=== PATIENT | female | born 1985 | race Caucasian/White ===

== ENCOUNTER 2017-11-09 12:43 | Emergency (ER) | payer OTHER ==
[2017-11-09] MEDS ORDERED: diPHENhydraMINE IV* 50 MG/ML 1 ml VIAL (BENADRYL) IV ONE (12:59)
[2017-11-09] MEDS ORDERED: Famotidine IV* 10 MG/ML 2 ML (20 mg) IV SLOW PU ONE (12:59)
[2017-11-09] MEDS ORDERED: methylPREDNISolone 125 MG* 2 ML VIAL IV ONE (12:59)
[2017-11-09 15:27] VITALS: BP 144/95
--- NOTE | 2017-11-09 18:02 | ED ---
Taco Haynes Tenzin, scribed for Abisai Zamora MD on 11/09/17 at 1328 . Allergic Reaction/Systemic - HPI Summary HPI Summary: Pt is a 32 years old female presenting to the ED with complaints of urticaria beginning this week which worsened when she woke up this morning. She has a history of allergy induced asthma. Pt notes her ear urticaria is swollen and in fiery pain. She also notes tightness around her chest and throat. She has hives diffusively around her back and front chest. She admits that she took allergy medication from a drug store but it didnt help to alleviate her symptoms. - History of Current Complaint Chief Complaint: EDAllergicReaction Time Seen by Provider: 11/09/17 12:51 Hx Obtained From: Patient Hx Last Menstrual Period: mirena Onset/Duration: Still Present Timing: Lasting Days Severity Initially: Moderate Severity Currently: Moderate Pain Scale Used: 0-10 Numeric Location: Diffuse - back and chest area Aggravating Factor(s): Nothing Alleviating Factor(s): Nothing Associated Signs And Symptoms: Positive: Throat Tightening, Other: - Urticaria and chest tightening. - Allergies/Home Medications Allergies/Adverse Reactions: Allergies Allergy/AdvReac Type Severity Reaction Status Date / Time kiwi Allergy Swelling Verified 11/09/17 12:55 Penicillins Allergy Rash Verified 11/09/17 12:55 PMH/Surg Hx/FS Hx/Imm Hx Endocrine/Hematology History: Reports: Hx Diabetes Denies: Hx Thyroid Disease Cardiovascular History: Denies: Hx Hypertension Respiratory History: Reports: Hx Asthma Denies: Hx Chronic Obstructive Pulmonary Disease (COPD) GI History: Denies: Hx Ulcer - Surgical History Surgery Procedure, Year, and Place: [place] [facility]. Oral Surgery Infectious Disease History: Denies: Hx Hepatitis, Hx Human Immunodeficiency Virus (HIV) - Family History Known Family History: Positive: Other Family History: Pt denies any relevant family history. - Social History Alcohol Use: Rare Substance Use Type: Reports: None Smoking Status (MU): Light Every Day Tobacco Smoker Amount Used/How Often: 1/2 PPD Review of Systems Positive: Other - Tightness around her chest and throat. Positive: Other - Urticaria All Other Systems Reviewed And Are Negative: Yes Physical Exam - Summary Physical Exam Summary: Appearance: The patient is well-nourished in no acute distress and in no acute pain. Skin: The skin is warm and dry and skin color reflects adequate perfusion. She has urticaria present diffusely on her back and on her front chest. HEENT: The head is normocephalic and atraumatic. The pupils are equal and reactive. The conjunctivae are clear and without drainage. Nares are patent and without drainage. Mouth reveals moist mucous membranes and the throat is without erythema and exudate. The external ears are intact. The ear canals are patent and without drainage. The tympanic membranes are intact. Neck: the neck is supple with full range of motion and non-tender. There are no carotid bruits. There is no neck vein distension. Respiratory: Chest is non-tender. Lungs are clear to auscultation and breath sounds are symmetrical and equal. Cardiovascular: Heart is regular rate and rhythm. There is no murmur or rub auscultated. There is no peripheral edema and pulses are symmetrical and equal. Abdomen: The abdomen is soft and non-tender. There are normal bowel sounds heard in all four quadrants and there is no organomegaly palpated. Musculoskeletal: There is no back tenderness noted. Extremities are non-tender with full range of motion. There is good capillary refill. There is no peripheral edema or calf tenderness elicited. Neurological: Patient is alert and oriented to person, place and time. The patient has symmetrical motor strength in all four extremities. Cranial nerves are grossly intact. Deep tendon reflexes are symmetrical and equal in all four extremities. Psychiatric: The patient has an appropriate affect and does not exhibit any anxiety or depression. Triage Information Reviewed: Yes Vital Signs On Initial Exam: Initial Vitals Pulse Resp Pulse Ox 124 24 97 11/09/17 12:54 11/09/17 12:54 11/09/17 12:54 Vital Signs Reviewed: Yes Diagnostics - Vital Signs Vital Signs Temp Pulse Resp BP Pulse Ox 11/09/17 15:26 0 F 91 20 144/95 95 11/09/17 15:01 102 25 94 11/09/17 14:59 99 23 137/94 94 11/09/17 14:29 94 21 133/92 95 11/09/17 14:01 101 25 95 11/09/17 13:59 99 22 165/100 96 11/09/17 13:29 99 20 164/108 97 11/09/17 13:00 109 19 97 11/09/17 12:59 25 167/99 11/09/17 12:55 98.9 F 109 24 167/99 96 11/09/17 12:54 124 24 97 - Laboratory Lab Statement: Any lab studies that have been ordered have been reviewed, and results considered in the medical decision making process. Allergic Reaction Course/Dx - Course Course Of Treatment: Ms. Clayton felt a lot better after medications here. It is unclear what is the source of her allergic reaction. I recommended she F/U closely and she was given the contact info for [facility] - Diagnoses Provider Diagnoses: Allergic reaction Discharge - Sign-Out/Discharge Documenting (check all that apply): Discharge/Admit/Transfer - Discharge Plan Condition: Stable Disposition: HOME Patient Education Materials: Urticaria (ED) Referrals: No Primary Care Phys,NOPCP [Primary Care Provider] - Additional Instructions: The patient is referred to [facility]. Phone number: [phone]. She can follow up with them in 3 days. Return to the emergency department for any new or worsening symptoms. - Billing Disposition and Condition Condition: STABLE Disposition: HOME The documentation as recorded by the Taco garrido Tenzin accurately reflects the service I personally performed and the decisions made by me, Abisai Zamora MD.
== END 2017-11-09 15:26 | disposition home or self-care (01) ==
LOC: ED 12:43
DX: T78.40XA Allergy, unspecified, initial encounter (principal); F17.200 Nicotine dependence, unspecified, uncomplicated; Z88.0 Allergy status to penicillin
CPT/HCPCS: 96374; 96375; 99282; J1200; J2930

== ENCOUNTER 2017-11-10 12:57 | Emergency (ER) | payer OTHER ==
[2017-11-10] MEDS ORDERED: Famotidine IV * 20 MG in NS 0.9% 100 ML* 100 ML IVPB ONE (13:13)
[2017-11-10] MEDS ORDERED: diPHENhydraMINE IV* 50 MG/ML 1 ml VIAL (BENADRYL) IV ONE (13:13)
[2017-11-10] MEDS ORDERED: methylPREDNISolone 125 MG* 2 ML VIAL IV ONE (13:15)
--- NOTE | 2017-11-10 13:23 | ED ---
Allergic Reaction/Systemic - HPI Summary HPI Summary: Patient is a 32-year-old female who presents to the ED with chief complaint of hives and midsternal chest pain which radiates over into the left side. She was seen here in the ED yesterday with a chief complaint of allergic reaction of hives. Hives have been present 6 days, but this is the first day she endorses chest pain. She has never had chest pain before. History of diabetes and hypertension, both of which are uncontrolled. She states she does not like the way the medication makes her feel, therefore does not take them. Since yesterday, she has been taking Benadryl which has not improved her symptoms. She was also given a steroid injection while in the ED, of which she does not feel it has helped either. She has diffuse hives over her abdomen and bilateral arms, sparing the lower extremities. She denies OCP use, denies recent travel, however she is a smoker. Risk factors of CAD as well as DVT/PE. - History of Current Complaint Chief Complaint: EDAllergicReaction Time Seen by Provider: 11/10/17 12:59 Hx Obtained From: Patient Hx Last Menstrual Period: mirena Onset/Duration: Sudden Onset Timing: Constant Severity Initially: Mild Severity Currently: Mild Pain Intensity: 0 Pain Scale Used: 0-10 Numeric Location: Discrete @ - midsternal chest pain radiating to the left side body Character: Swelling, Pruritus, Hives Aggravating Factor(s): Nothing Alleviating Factor(s): Nothing Associated Signs And Symptoms: Positive: Chest Pain. Negative: Difficulty Breathing, Hoarseness, Lightheadedness, Throat Tightening - Related Hx Possible Reaction To: Unknown - Allergies/Home Medications Allergies/Adverse Reactions: Allergies Allergy/AdvReac Type Severity Reaction Status Date / Time kiwi Allergy Swelling Verified 11/09/17 12:55 Penicillins Allergy Rash Verified 11/09/17 12:55 Home Medications: Home Medications Ibuprofen TAB* [Motrin TAB* 600 MG] 600 mg PO Q8H PRN 11/10/17 [History Confirmed 11/10/17] Levonorgestrel (Iud) [Mirena IUD] 20 mcg IU ONCE 11/10/17 [History Confirmed ] PMH/Surg Hx/FS Hx/Imm Hx Previously Healthy: Yes Endocrine/Hematology History: Reports: Hx Diabetes Denies: Hx Thyroid Disease Cardiovascular History: Denies: Hx Hypertension Respiratory History: Reports: Hx Asthma Denies: Hx Chronic Obstructive Pulmonary Disease (COPD) GI History: Denies: Hx Ulcer - Surgical History Surgery Procedure, Year, and Place: [place] Teeth. Oral Surgery - Immunization History Hx Pertussis Vaccination: No Immunizations Up to Date: Unable to Obtain/Confirm Infectious Disease History: No Infectious Disease History: Denies: Hx Hepatitis, Hx Human Immunodeficiency Virus (HIV), Traveled Outside the [place] in Last 30 Days - Family History Known Family History: Positive: Other Family History: Pt denies any relevant family history. - Social History Occupation: Employed Full-time Lives: Alone Alcohol Use: Rare Hx Substance Use: No Substance Use Type: Reports: None Smoking Status (MU): Light Every Day Tobacco Smoker Amount Used/How Often: 1/2 PPD Review of Systems Constitutional: Negative Negative: Fever, Chills, Fatigue, Skin Diaphoresis Negative: Photophobia, Blurred Vision, Diplopia, Drainage, Erythema Negative: Sore Throat, Nasal Discharge Positive: Chest Pain. Negative: Palpitations Negative: Shortness Of Breath, Cough Positive: no symptoms reported, see HPI Positive: Other - diffuse hives Neurological: Negative Psychological: Normal All Other Systems Reviewed And Are Negative: Yes Physical Exam Triage Information Reviewed: Yes Vital Signs On Initial Exam: Initial Vitals Temp Pulse Resp BP Pulse Ox 98.8 F 114 18 159/90 94 11/10/17 13:11 11/10/17 13:11 11/10/17 13:11 11/10/17 13:11 11/10/17 13:11 Vital Signs Reviewed: Yes Appearance: Positive: Well-Appearing, No Pain Distress, Well-Nourished Skin: Positive: Skin Color Reflects Adequate Perfusion, Other - Diffuse hives Head/Face: Positive: Normal Head/Face Inspection Neck: Positive: No Lymphadenopathy Respiratory/Lung Sounds: Positive: Clear to Auscultation, Breath Sounds Present Cardiovascular: Positive: RRR, Pulses are Symmetrical in both Upper and Lower Extremities Musculoskeletal: Positive: Normal, Strength/ROM Intact Neurological: Positive: Speech Normal Psychiatric: Positive: Affect/Mood Appropriate Diagnostics - Vital Signs Vital Signs Temp Pulse Resp BP Pulse Ox 11/10/17 13:11 98.8 F 114 18 159/90 94 - Laboratory Result Diagrams: 11/10/17 13:34 Lab Statement: Any lab studies that have been ordered have been reviewed, and results considered in the medical decision making process. Allergic Reaction Course/Dx - Course Course Of Treatment: During the course of treatment, the patient is evaluated for diffuse hives secondary to an allergic reaction of an unknown source. She was seen yesterday for same. She was given steroids and encouraged Benadryl, both she states which are not helping. She was not however given at home dose steroids. She endorses midsternal chest pain radiating over into the left side. Denies any shortness of breath, dysphagia. On physical examination, airway is patent. There is diffuse hives throughout the abdomen and bilateral arms, sparing the lower extremities. She states the hives have remained stable , but her chief complaint is concern of chest pain. Risk factors of CAD as well as DVT/PE. She states however the pain is not worse with inspiration, she is not tachycardic on arrival, she does not appear anxious and less likely a PE. However due to her risk factors, d-dimer obtained. D-dimer elevated at 909. CTA obtained to assess for PE as patient is also set tachycardic at 113. CTA is negative for PE. Patient is given a tapering dose of prednisone, hydroxyzine for itching, famotidine and Benadryl. She is also given an albuterol inhaler. 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 Likely chest pain bronchospasm secondary to allergic reaction. Prior to discharge, hives diffusely throughout have resolved , however she continues to complain of itching. - Diagnoses Differential Diagnosis/HQI/PQRI: Positive: Anaphylaxis, Bronchospasm Provider Diagnoses: Allergic reaction Discharge - Sign-Out/Discharge Documenting (check all that apply): Discharge/Admit/Transfer - Discharge Plan Condition: Stable Disposition: HOME Prescriptions: Albuterol HFA INHALER* [Ventolin HFA Inhaler*] 1 puff INH Q4H PRN #1 mdi PRN Reason: Shortness Of Breath diPHENhydraMINE PO* [Benadryl PO 50 MG CAP*] 50 mg PO BID #14 cap Famotidine TAB* [Pepcid 20 MG TAB*] 40 mg PO BID #14 tab hydrOXYzine HCL TAB* [Atarax TAB 50 MG *] 50 mg PO TID PRN #15 tab PRN Reason: Itching predniSONE TAB* [Deltasone TAB*] 10 mg PO DAILY #30 tab Patient Education Materials: Urticaria (ED), Allergies (ED) Referrals: No Primary Care Phys,NOPCP [Primary Care Provider] - Additional Instructions: I believe you're having an allergic reaction Take Benadryl 50 mg once or twice daily Take famotidine 1 tab twice daily Prednisone as directed: Take 5 tabs on day 1, 2; 4 tabs on day 3, 4; 3 tabs on day 5, 6; 2 tabs on day 7, 8; 1 tab on day 9, 10 Hydroxyzine up to 3 times daily for itching Be careful when taking hydroxyzine, do not take Benadryl simultaneously as this will make you excessively drowsy and may cause respiratory depression You may obtain [id number] hydrocortisone for any itching - Billing Disposition and Condition Condition: STABLE Disposition: HOME
[2017-11-10] MEDS ORDERED: Famotidine IV* 10 MG/ML 2 ML (20 mg) ONE (13:39)
--- NOTE | 2017-11-10 14:17 | RAD ---
HISTORY: Allergic reaction with chest pain COMPARISONS: None VIEWS: 4: Frontal dual-energy and lateral views of the chest. FINDINGS: CARDIOMEDIASTINAL SILHOUETTE: The cardiomediastinal silhouette is normal. VAL: The val are normal. PLEURA: The costophrenic angles are sharp. No pleural abnormalities are noted. LUNG PARENCHYMA: The lungs are clear. ABDOMEN: The upper abdomen is clear. There is no subphrenic gas. BONES AND SOFT TISSUES: No bone or soft tissue abnormalities are noted. OTHER: None. IMPRESSION: NO ACTIVE CARDIOPULMONARY DISEASE.
[2017-11-10 15:05] LABS: EGFR Non-African American 74.5 (>60)
[2017-11-10] MEDS ORDERED: Iodixanol* (CONTRAST) 320 MG/ML 100 ML SDV IV ONE (15:17)
--- NOTE | 2017-11-10 15:54 | RAD ---
HISTORY: Elevated d-dimer with pleuritic chest pain COMPARISONS: None TECHNIQUE: Multiple contiguous axial CT scans of the chest were obtained after the administration of nonionic intravenous contrast, timed to the pulmonary arterial phase of contrast enhancement.. Coronal and sagittal multiplanar reformations are also submitted for review. FINDINGS: Evaluation limited by patient breathing motion artifact and suboptimal contrast opacification. The study is considered a borderline but diagnostic quality NECK AND THYROID: The lower neck and thyroid are unremarkable. CHEST WALL: There is no lower cervical, axillary, or supraclavicular lymphadenopathy by size criteria. HEART AND PERICARDIUM: The heart is unremarkable. AORTA AND PULMONARY VASCULATURE: There is no pulmonary arterial filling defect to suggest pulmonary embolism. There is no linear filling defect within the aorta to suggest aortic dissection. MEDIASTINUM: There is no mediastinal lymphadenopathy by size criteria. VAL: There is no hilar lymphadenopathy by size criteria. AIRWAY AND ESOPHAGUS: The airway is unremarkable, without endobronchial filling defect. The esophagus is grossly normal. LUNG PARENCHYMA: The lungs are clear. PLEURA: No pleural abnormalities are noted. UPPER ABDOMEN: The liver appears enlarged. The liver is diffusely low in attenuation compared to the spleen. BONES AND SOFT TISSUES: No bone or soft tissue abnormalities are noted. OTHER: None. IMPRESSION: 1. LIMITED STUDY. 2. NO PULMONARY ARTERIAL FILLING DEFECT TO SUGGEST PULMONARY EMBOLISM.. 3. HEPATOMEGALY WITH FATTY INFILTRATION OF THE LIVER.
[2017-11-10 16:25] VITALS: BP 117/81
== END 2017-11-10 16:41 | disposition home or self-care (01) ==
LOC: ED 12:57
DX: T78.40XA Allergy, unspecified, initial encounter (principal); X58.XXXA Exposure to other specified factors, initial encounter; Y92.9 Unspecified place or not applicable; E11.8 Type 2 diabetes mellitus with unspecified complications; F17.210 Nicotine dependence, cigarettes, uncomplicated
CPT/HCPCS: 36415; 71046; 71275; 80048; 84484; 85379; 93005; 96374; 96375; 99283; J1200; J2930; Q9967

== ENCOUNTER 2018-02-06 12:07 | Emergency (ER) | payer OTHER ==
[2018-02-06 12:14] VITALS: BP 158/97
--- NOTE | 2018-02-06 12:26 | UC ---
[facility] HPI - HPI Summary HPI Summary: right upper dental abscess, has multiple dental caries , in molars left and right upper and lower, non adherent with BP and DM medications--states she is not getting much relief with otc medication-- - History of Current Complaint Chief Complaint: UCDentalProblem Stated Complaint: DENTAL Time Seen by Provider: 02/06/18 12:16 Hx Obtained From: Patient Hx Last Menstrual Period: 01/27/18 ?: No Onset/Duration: Gradual Onset, Lasting Weeks, Worse Since - past 1 week Pain Intensity: 6 Pain Scale Used: 0-10 Numeric Aggravating Factor(s): Heat Alleviating Factor(s): Nothing Related History: Previous Dental Care on Same Tooth, Swelling - Allergies/Home Medications Allergies/Adverse Reactions: Allergies Allergy/AdvReac Type Severity Reaction Status Date / Time kiwi Allergy Swelling Verified 02/06/18 12:15 Penicillins Allergy Rash Verified 02/06/18 12:15 PMH/Surg Hx/FS Hx/Imm Hx Previously Healthy: No Endocrine History: Diabetes Cardiovascular History: Hypertension Psychological History: Depression, Bipolar Disorder, Post Traumatic Stress Disorder - Surgical History Surgical History: Yes Surgery Procedure, Year, and Place: [place] Teeth. Oral Surgery - Family History Known Family History: Positive: Other Family History: Pt denies any relevant family history. - Social History Occupation: Unemployed Lives: With Family Alcohol Use: Rare Substance Use Type: None Smoking Status (MU): Light Every Day Tobacco Smoker Amount Used/How Often: 1/2 PPD Have You Smoked in the Last Year: No Household Exposure Type: Cigarettes Cessation Counseling: Patient Advised to Stop Review of Systems Constitutional: Negative Skin: Negative Eyes: Negative ENT: Dental Pain Respiratory: Negative Cardiovascular: Negative Gastrointestinal: Negative Genitourinary: Negative Motor: Negative Neurovascular: Negative Musculoskeletal: Negative Neurological: Negative Psychological: Negative Is Patient Immunocompromised?: No All Other Systems Reviewed And Are Negative: Yes Physical Exam Triage Information Reviewed: Yes Appearance: Well-Appearing, No Pain Distress, Well-Nourished Vital Signs: Initial Vital Signs Temp 98 F 02/06/18 12:11 Pulse 81 02/06/18 12:11 Resp 16 02/06/18 12:11 BP 158/97 02/06/18 12:11 Pulse Ox 99 02/06/18 12:11 Vital Signs Reviewed: Yes Eye Exam: Normal Eyes: Positive: Conjunctiva Clear ENT Exam: Normal ENT: Positive: Normal ENT inspection, Hearing grossly normal, Dental tenderness. Negative: Trismus, Muffled voice, Hoarse voice Dental Exam: Normal Dental: Positive: Percussion Tenderness @ - right upper molars, Gross Decay/ Caries @ - right and left upper mlars, Abscess @ - right upper jaw Neck exam: Normal Neck: Positive: Supple, Nontender Respiratory Exam: Normal Respiratory: Positive: Chest non-tender, No respiratory distress, No accessory muscle use Cardiovascular Exam: Normal Cardiovascular: Positive: RRR, Pulses Normal, Brisk Capillary Refill Musculoskeletal Exam: Normal Musculoskeletal: Positive: Strength Intact, ROM Intact, No Edema Neurological Exam: Normal Neurological: Positive: Alert, Muscle Tone Normal Psychological Exam: Normal Skin Exam: Normal Dental Complaint Course/Dx - Course Course Of Treatment: clindamycin, ibuprofen, warm compress, encouraged to follow hypertension and DM with PCP, follow with [facility] as planned - Differential Dx/Diagnosis Provider Diagnoses: dental abscess (right upper jaw), non adherent treatment for blood pressure and DM, Hypertension in poor control Discharge - Sign-Out/Discharge Documenting (check all that apply): Patient Departure - Discharge Plan Condition: Stable Disposition: HOME Prescriptions: Clindamycin Cap(NF) [Clindamycin Cap 300 mg Cap(NF)] 300 mg PO Q6H #40 cap Ibuprofen TAB* [Motrin TAB* 600 MG] 600 mg PO Q6H PRN #30 tab PRN Reason: pain Patient Education Materials: Dental Abscess (ED), DASH Eating Plan (ED), Hypertension (ED), Diabetes and Exercise (ED) Referrals: [facility] [Outside] - 1 Week Additional Instructions: follow with [facility] as planned - Billing Disposition and Condition Condition: STABLE Disposition: Home
== END 2018-02-06 12:45 | disposition home or self-care (01) ==
LOC: UCEAST 12:07
DX: K04.7 Periapical abscess without sinus (principal); K02.9 Dental caries, unspecified; E11.9 Type 2 diabetes mellitus without complications; I10 Essential (primary) hypertension; Z88.0 Allergy status to penicillin; Z91.018 Allergy to other foods; F17.210 Nicotine dependence, cigarettes, uncomplicated
CPT/HCPCS: 99212; G0463

== ENCOUNTER 2018-05-16 12:06 | Emergency (ER) | payer OTHER ==
[2018-05-16 12:54] VITALS: BP 152/97
--- NOTE | 2018-05-16 13:35 | UC ---
Throat Pain/Nasal Joshua HPI - HPI Summary HPI Summary: 33-year-old female presents with onset of sore throat and bilateral ear pain on 05/08/2018. Associated with subjective fever. States her ear pain is worse on the left. She also notes occasional wheezing and nonproductive cough. Has history of asthma and is using her rescue inhaler 2-3 times a day. Denies ear drainage, dysphagia, chest pain, palpitations, shortness of breath, abdominal pain, nausea, or vomiting. - History of Current Complaint Chief Complaint: UCRespiratory Stated Complaint: SORE THROAT Time Seen by Provider: 05/16/18 13:13 Hx Obtained From: Patient Hx Last Menstrual Period: 01/27/18 Onset/Duration: Gradual Onset, Lasting Days - 8 Severity: Severe Pain Intensity: 10 Cough: Nonproductive Associated Signs & Symptoms: Positive: Wheezing, Fever. Negative: Dysphagia, Drooling, Sinus Discomfort, Nasal Discharge, Vomiting, Rash Related History: Smoking - Allergies/Home Medications Allergies/Adverse Reactions: Allergies Allergy/AdvReac Type Severity Reaction Status Date / Time kiwi Allergy Swelling Verified 05/16/18 12:53 Penicillins Allergy Rash Verified 05/16/18 12:53 PMH/Surg Hx/FS Hx/Imm Hx Previously Healthy: Yes Respiratory History: Asthma - Surgical History Surgical History: Yes Surgery Procedure, Year, and Place: [place] Teeth. Oral Surgery - Family History Known Family History: Positive: Non-Contributory - Social History Occupation: Unemployed Lives: Alone Alcohol Use: Rare Substance Use Type: None Smoking Status (MU): Light Every Day Tobacco Smoker Amount Used/How Often: 1/2 PPD Have You Smoked in the Last Year: No Household Exposure Type: Cigarettes Review of Systems All Other Systems Reviewed And Are Negative: Yes Constitutional: Positive: Fever, Chills, Fatigue Skin: Negative: Rash Eyes: Negative: Drainage, Eye Redness ENT: Positive: Sore Throat. Negative: Nasal Discharge, Sinus Congestion, Sinus Pain/Tenderness Respiratory: Positive: Cough, Other - wheezing Cardiovascular: Negative: Palpitations, Chest Pain Gastrointestinal: Negative: Abdominal Pain, Vomiting, Nausea Is Patient Immunocompromised?: No Physical Exam Triage Information Reviewed: Yes Appearance: No Pain Distress, Well-Nourished, Obese Vital Signs: Initial Vital Signs Temp 98.8 F 05/16/18 12:51 Pulse 99 05/16/18 12:51 Resp 18 05/16/18 12:51 BP 152/97 05/16/18 12:51 Pulse Ox 99 05/16/18 12:51 Vital Signs Reviewed: Yes Eyes: Positive: Conjunctiva Clear. Negative: Discharge ENT: Positive: Hearing grossly normal, Pharyngeal erythema, TMs normal, Tonsillar swelling - 2+, Tonsillar exudate, Uvula midline. Negative: Nasal congestion, Nasal drainage, Sinus tenderness Neck: Positive: Supple, Nontender, Enlarged Nodes @ - Anterior cervical Respiratory: Positive: Lungs clear, Normal breath sounds, No respiratory distress Cardiovascular: Positive: RRR, No Murmur, Pulses Normal, Brisk Capillary Refill Abdomen Description: Positive: Nontender, No Organomegaly, Soft. Negative: Distended, Guarding Bowel Sounds: Positive: Present Neurological: Positive: Alert Skin Exam: Normal Throat Pain/Nasal Course/Dx - Course Course Of Treatment: 33-year-old female presents with onset of sore throat and bilateral ear pain on 05/08/2018. Associated with subjective fever. States her ear pain is worse on the left. She also notes occasional wheezing and nonproductive cough. Has history of asthma and is using her rescue inhaler 2-3 times a day. Exam revealed pharyngeal erythema, edema, and tonsilar exudate with anterior cervical lymphadenopathy. Rapid strep positive. She was given a dose of hydrocodone-acetaminophen 5/235 1 tab in the clinic for reported severity of sore throat. The [facility] was reviewed reference #[id number] and it is safe to prescribe. Will treat with course of azithromycin as patient has reported penicillin allergy as well as symptomatic treatment. She is to follow up with PCP in 7 days if symptoms persist. Warning symptoms reviewed. Verbalizes understanding and agrees with POC. - Differential Dx/Diagnosis Differential Diagnosis/HQI/PQRI: Mononucleosis, Peritonsillar Abscess, Pharyngitis, Tonsillitis, URI Provider Diagnoses: Strep pharyngitis Discharge - Sign-Out/Discharge Documenting (check all that apply): Patient Departure All imaging exams completed and their final reports reviewed: No Studies - Discharge Plan Condition: Stable Disposition: HOME Prescriptions: Azithromycin TAB* [Zithromax TAB (Z-JOVANY) 250 mg #6 tabs] 2 tab PO .TODAY, THEN 1 DAILY #1 jovany Patient Education Materials: Strep Throat (ED) Referrals: No Primary Care Phys,NOPCP [Primary Care Provider] - Additional Instructions: your rapid strep test performed in the clinic today was positive for strep. We will treat you with an antibiotic for the infection. Start azithromycin 2 tabs today then 1 tab a day for next 4 days. You were given hydrocodone-acetaminophen 1 tab in the clinic today for the pain. This will cause drowsiness so do not drive or operate machinery for at least 8 hours after taking. After you have been on the antibiotic for 3 days change out your toothbrush for a new one to prevent reinfection. Use salt water gargles several times a day for your sore throat. Take acetaminophen (Tylenol) or ibuprofen (Advil, Motrin) according to directions as needed for fever or pain. You may also use Chloraseptic spray or Cepacol lozenges for some temporary pain relief from your sore throat. Follow-up with your primary care provider in 7 days if symptoms persist. Seek immediate medical attention if you have a persistent fever greater than 100.5 F despite taking acetaminophen or ibuprofen, you are unable to swallow, has difficulty breathing, or have any worsening of symptoms. - Billing Disposition and Condition Condition: STABLE Disposition: Home
[2018-05-16] MEDS ORDERED: HYDROcodone/ACETAMIN 5-325 MG* 1 TAB PO ONE (13:41)
== END 2018-05-16 14:10 | disposition home or self-care (01) ==
LOC: UCEAST 12:06
DX: J02.0 Streptococcal pharyngitis (principal); B95.0 Streptococcus, group A, as the cause of diseases classified elsewhere; Z88.0 Allergy status to penicillin; F17.210 Nicotine dependence, cigarettes, uncomplicated
CPT/HCPCS: 87651; 99212; G0463

== ENCOUNTER 2018-06-14 13:34 | Emergency (ER) | payer OTHER ==
[2018-06-14 13:41] VITALS: BP 166/100
--- NOTE | 2018-06-14 14:17 | UC ---
Dental HPI - HPI Summary HPI Summary: PATIENT WITH DIFFUSE DENTAL DECAY PRESENTS WITH INCREASING PAIN TO RIGHT UPPER FIRST MOLAR (TOOTH #3). NO FEVER, NAUSEA/VOMITING. HAS HAD RECURRENT TROUBLE WITH THIS TOOTH MOST RECENTLY IN JANUARY OF THIS YEAR. HAS ATTEMPTED TO SEE SEVERAL DENTISTS BUT IS HAVING INSURANCE DIFFICULTIES. 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 - History of Current Complaint Chief Complaint: UCDentalProblem Stated Complaint: TOOTHACHE Time Seen by Provider: 06/14/18 13:42 Hx Obtained From: Patient Hx Last Menstrual Period: May 29 Onset/Duration: Gradual Onset, Lasting Hours, Still Present Severity: Moderate Pain Intensity: 8 Pain Scale Used: 0-10 Numeric Aggravating Factor(s): Heat, Cold, Chewing - Allergies/Home Medications Allergies/Adverse Reactions: Allergies Allergy/AdvReac Type Severity Reaction Status Date / Time kiwi Allergy Swelling Verified 06/14/18 13:41 Penicillins Allergy Rash Verified 06/14/18 13:41 Home Medications: Home Medications Metoprolol Tartrate TAB* [Lopressor TAB*] 25 mg PO DAILY 06/14/18 [History Confirmed 06/14/18] glipiZIDE TAB* [Glucotrol TAB*] 5 mg PO DAILY 06/14/18 [History Confirmed ] PMH/Surg Hx/FS Hx/Imm Hx Endocrine History: Diabetes Cardiovascular History: Hypertension Respiratory History: Asthma - Surgical History Surgical History: Yes Surgery Procedure, Year, and Place: [place] Te[facility]. Oral Surgery - Family History Known Family History: Positive: Non-Contributory Family History: Pt denies any relevant family history. - Social History Alcohol Use: Rare Substance Use Type: None Smoking Status (MU): Light Every Day Tobacco Smoker Amount Used/How Often: 1/2 PPD Have You Smoked in the Last Year: No Household Exposure Type: Cigarettes Review of Systems All Other Systems Reviewed And Are Negative: Yes Constitutional: Positive: Negative ENT: Positive: Dental Pain Respiratory: Positive: Negative Cardiovascular: Positive: Negative Gastrointestinal: Positive: Negative Physical Exam Triage Information Reviewed: Yes Appearance: Well-Appearing, Well-Nourished, Pain Distress - MILD Vital Signs: Initial Vital Signs Temp 97.8 F 06/14/18 13:38 Pulse 100 06/14/18 13:38 Resp 18 06/14/18 13:38 BP 166/100 06/14/18 13:38 Pulse Ox 100 06/14/18 13:38 Vital Signs Reviewed: Yes Eyes: Positive: Conjunctiva Clear ENT: Positive: Hearing grossly normal Dental: Positive: Percussion Tenderness @ - #3, Gross Decay/Caries @ - DIFFUSELY Neck: Positive: Supple, Nontender, No Lymphadenopathy Respiratory: Positive: No respiratory distress, No accessory muscle use Cardiovascular: Positive: Pulses Normal Abdomen Description: Positive: Soft Musculoskeletal: Positive: No Edema Neurological: Positive: Alert Psychological: Positive: Age Appropriate Behavior Skin: Negative: Rashes Dental Complaint Course/Dx - Differential Dx/Diagnosis Provider Diagnosis: Toothache, Dental decay Discharge - Sign-Out/Discharge Documenting (check all that apply): Patient Departure All imaging exams completed and their final reports reviewed: No Studies - Discharge Plan Condition: Stable Disposition: HOME Prescriptions: Chlorhexidine MW 0.12% 473ML* [Peridex Mouth Wash 0.12%*] 15 ml SWISH SPIT BID # 1 bottle Clindamycin HCl 300 mg PO TID #30 capsule HYDROcodone/ACETAMIN 5-325 MG* [[place] 5-325 TAB*] 1 tab PO Q6H PRN #12 tab MDD 4 PRN Reason: Pain Ibuprofen TAB* [Motrin TAB* 600 MG] 1 tab PO Q6H PRN #30 tab PRN Reason: Pain Patient Education Materials: Toothache (ED) Referrals: No Primary Care Phys,NOPCP [Primary Care Provider] - Additional Instructions: TAKE THE ANTIBIOTICS FOR THE FULL COURSE. RINSE MOUTH OUT WITH WATER AFTER EATING/DRINKING AND USE PERIDEX RINSE TWICE DAILY. IBUPROFEN NEEDED FOR DISCOMFORT. HYDROCODONE FOR BREAKTHROUGH. LIST OF LOW COST DENTISTS PROVIDED. YOU MAY ALSO TRY THE FOLLOWING DENTAL OFFICES. [facility] Dentist Office [address], [place], [place] [id number] Opens at [address] Dr. Trevor Andrews, [place] [address], [place] [address] Morris Kim D.D.S. [address], [place], [place] [address] Opens at 8am - Billing Disposition and Condition Condition: STABLE Disposition: Home
== END 2018-06-14 14:10 | disposition home or self-care (01) ==
LOC: UCEAST 13:34
DX: K02.9 Dental caries, unspecified (principal); K08.89 Other specified disorders of teeth and supporting structures; E11.9 Type 2 diabetes mellitus without complications; I10 Essential (primary) hypertension; J45.909 Unspecified asthma, uncomplicated; F17.210 Nicotine dependence, cigarettes, uncomplicated; Z88.0 Allergy status to penicillin; Z91.018 Allergy to other foods
CPT/HCPCS: 99212; G0463

== ENCOUNTER 2019-03-26 21:14 | Emergency (ER) | payer OTHER ==
[2019-03-26 21:24] VITALS: BP 147/100
--- NOTE | 2019-03-26 21:34 | UC ---
Dental HPI - HPI Summary HPI Summary: 34 yo diabetic with hx of poor dentition and recurrent infections, presents with a one day hx of increasing left upper dental pain and mild swelling of the left cheek. - History of Current Complaint Chief Complaint: UCDentalProblem Stated Complaint: DENTAL COMPLAINT Time Seen by Provider: 03/26/19 21:26 Hx Obtained From: Patient Hx Last Menstrual Period: END OF FEB 2019; IUD Onset/Duration: Gradual Onset, Lasting Hours Severity: Moderate Pain Intensity: 7 Aggravating Factor(s): Heat, Cold, Chewing Alleviating Factor(s): OTC Meds - took ibu 800mg twice today and one dose of acetaminophen Related History: Previous Dental Care on Same Tooth, Swelling - Allergies/Home Medications Allergies/Adverse Reactions: Allergies Allergy/AdvReac Type Severity Reaction Status Date / Time kiwi Allergy Swelling Verified 03/26/19 21:19 Penicillins Allergy Rash Verified 03/26/19 21:19 PMH/Surg Hx/FS Hx/Imm Hx - Additional Past Medical History Additional PMH: Elevated white blood count x 3 months, and has follow up with her PMD about this. Endocrine History: Diabetes Cardiovascular History: Hypertension - Surgical History Surgical History: Yes Surgery Procedure, Year, and Place: [place] Te[facility]. Oral Surgery - Family History Known Family History: Positive: Diabetes Family History: Pt denies any relevant family history. 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 Negative: Fever Skin: Positive: Negative Eyes: Positive: Negative ENT: Positive: Dental Pain. Negative: Ear Ache, Nasal Discharge Respiratory: Positive: Cough - just recuperating from a cold. Cardiovascular: Negative: Palpitations, Chest Pain Gastrointestinal: Negative: Vomiting, Nausea Genitourinary: Positive: Negative Motor: Positive: Negative Neurovascular: Positive: Negative Musculoskeletal: Positive: Negative Neurological: Positive: Negative Psychological: Positive: Negative, Anxious Is Patient Immunocompromised?: No Physical Exam Triage Information Reviewed: Yes Appearance: Well-Appearing, Pain Distress - mild to moderate., Obese Vital Signs: Initial Vital Signs Temp 97.9 F 03/26/19 21:20 Pulse 87 03/26/19 21:20 Resp 16 03/26/19 21:20 BP 147/100 03/26/19 21:20 Pulse Ox 98 03/26/19 21:20 Eyes: Positive: Conjunctiva Clear ENT: Positive: Normal ENT inspection, TMs normal, Other - mild cheek swelling. Dental: Positive: Percussion Tenderness @, Gross Decay/Caries @ - 12.13, Dental Fracture @, Abscess @ - 13 Neck: Positive: Supple, Nontender, No Lymphadenopathy Respiratory: Positive: Lungs clear, Normal breath sounds Cardiovascular: Positive: RRR, No Murmur Musculoskeletal Exam: Normal Neurological: Positive: Alert Skin Exam: Normal Images Dental: 1 - tooth fractured and deeply decayed. 2 - decay to gumline Dental Complaint Course/Dx - Course Course Of Treatment: clindamycin for treatment of dental abscess, discussed need for definitive dental work. - Differential Dx/Diagnosis Differential Diagnosis/Dx: Dental Abscess, Dental Caries, Fractured Tooth Provider Diagnosis: Dental abscess Discharge ED - Sign-Out/Discharge Documenting (check all that apply): Patient Departure All imaging exams completed and their final reports reviewed: No Studies - Discharge Plan Condition: Stable Disposition: HOME Prescriptions: Clindamycin Cap(NF) [Clindamycin Cap 300 mg Cap(NF)] 300 mg PO QID #28 cap Patient Education Materials: Dental Abscess (ED) Referrals: Layne Loya NP [Primary Care Provider] - Additional Instructions: Complete the course of clindamycin for treatment. Use ibuprofen 800mg three times daily and acetaminophen 650mg up to 4 times daily for control. It is essential that you seek definitive dental care to prevent this recurrent problem, which is a significant health risk. The antibiotic is just a stopgap. - Billing Disposition and Condition Condition: STABLE Disposition: Home
[2019-03-26] MEDS ORDERED: Clindamycin CAP* 150 MG PO ONE (21:39)
== END 2019-03-26 22:01 | disposition home or self-care (01) ==
LOC: UCEAST 21:14
DX: K04.7 Periapical abscess without sinus (principal); E11.9 Type 2 diabetes mellitus without complications; E66.9 Obesity, unspecified; I10 Essential (primary) hypertension; F17.210 Nicotine dependence, cigarettes, uncomplicated; Z91.018 Allergy to other foods; Z88.8 Allergy status to other drugs, medicaments and biological substances
CPT/HCPCS: 99212; A9270-GY; G0463